=== PATIENT | male | born 1990 | race Caucasian/White ===

== ENCOUNTER 2019-11-15 21:39 | Emergency (ER) | payer MEDICAID ==
[~2019-11-15] VITALS: Ht 180.3 cm; Wt 67.6 kg
[2019-11-15 21:44] VITALS: BP_SYST 146
--- NOTE | 2019-11-15 21:48 | NUR ---
Patient triaged and placed in waiting room. VSS and patient appears in no acute distress at this time. Accompanied by self, awaiting available bed, and MD notified of need for MSE.
--- NOTE | 2019-11-16 00:15 | NUR ---
Patient to ER bed 01 for evaluation. Side rails up. Report given to Bony FAUSTIN.
--- NOTE | 2019-11-16 00:23 | NUR ---
Pt AAOx4 ambulated into ED c/o redness, swelling, to R 3rd digit with new onset pain radiating up R upper arm. Denies trauma, states this has occurred before and it resolved on its own. No other injuries/complaints per pt/noted. Will continue to monitor.
--- NOTE | 2019-11-16 01:10 | NUR ---
VSS no s/s of acute distress Resting on gurney rails up
--- NOTE | 2019-11-16 01:34 | NUR ---
Dr. Franco bedside for Pt eval
[2019-11-16] MEDS ORDERED: cefTRIAXone 1 GM IVPB PREMIX 50 ML IV ONE (02:00)
--- NOTE | 2019-11-16 02:16 | NUR ---
Pt taken to Radiology in stable condition
--- NOTE | 2019-11-16 02:30 | NUR ---
Pt back from Radiology, well tolerated
[2019-11-16 02:42] LABS: BASOPHILS % (AUTO) 0.3 % (0.0-2.0); EOSINOPHILS # (AUTO) 0.2 K/uL (0.0-0.4); EOSINOPHILS % (AUTO) 1.1 % (0.0-4.0); HEMATOCRIT 45.1 % (36-54); HEMOGLOBIN 15.6 g/dL (14.0-18.0); LYMPHOCYTES # (AUTO) 4.4 K/uL (1.0-5.5); LYMPHOCYTES % (AUTO) 28.6 % (20.5-51.5); MEAN CORPUSCULAR HEMOGLOBIN 32 pg (27-31); MEAN CORPUSCULAR HGB CONC 35 % (32-36); MEAN CORPUSCULAR VOLUME 92 fL (79.0-98.0); MONOCYTES # (AUTO) 1.2 K/uL (0.0-1.0); MONOCYTES % (AUTO) 7.5 % (1.7-9.3); NEUTROPHILS # (AUTO) 9.7 K/uL (1.8-7.7); NEUTROPHILS % (AUTO) 62.5 % (40.0-70.0); PLATELET COUNT (AUTO) 212 K/uL (130-430); RED BLOOD CELL COUNT(AUTO) 4.88 MIL/uL (4.2-6.2); RED CELL DISTRIBUTION WIDTH 12.6 % (9.0-15.0); WHITE BLOOD COUNT (AUTO) 15.5 K/uL (4.8-10.8)
[2019-11-16 02:51] LABS: CALCIUM 8.8 mg/dL (8.4-11.0); CREATININE 0.76 mg/dL (0.55-1.30); POTASSIUM 3.6 mmol/L (3.5-5.1)
[2019-11-16] MEDS ORDERED: KETOROLAC TROMETHAMINE 30 MG VIAL IVP ONE (03:00)
[2019-11-16 03:07] LABS: ALBUMIN 4.8 g/dL (3.4-4.8); THYROID STIMULATING HORMONE 3.82 uIu/mL (0.36-3.74); TOTAL BILIRUBIN 0.7 mg/dL (0.0-1.0)
--- NOTE | 2019-11-16 03:20 | NUR ---
VSS no s/s of acute distress Resting on gurney rails up
--- NOTE | 2019-11-16 04:30 | NUR ---
Dr. Franco bedside for Pt update
[2019-11-16] MEDS ORDERED: MORPHINE 2 MG/ML INJ. SYRINGE IVP ONE (05:00)
--- NOTE | 2019-11-16 05:20 | NUR ---
VSS no s/s of acute distress Resting on gurney rails up
[2019-11-16 05:25] VITALS: BP_SYST 146
--- NOTE | 2019-11-16 05:25 | NUR ---
Patient given written and verbal discharge instructions and verbalizes understanding. ER MD discussed with patient the results and treatment provided. Patient in stable condition. ID arm band removed. IV catheter removed intact and dressing applied, no active bleeding. Rx of [place] and Keflex given. Patient educated on pain management and to follow up with PMD. Pain Scale 0/10 Opportunity for questions provided and answered. Medication side effect fact sheet provided.
== END 2019-11-16 05:25 | disposition home or self-care (01) ==
LOC: SED 21:39
DX: L03.011 Cellulitis of right finger (principal); R53.1 Weakness; R20.2 Paresthesia of skin; E03.9 Hypothyroidism, unspecified
CPT/HCPCS: 36415; 70450; 80053; 84443; 85025; 87070; 87186; 96365; 96375; 99284; J0696; J1885; J2270